=== PATIENT | female | born 1950 | race Caucasian/White ===

== ENCOUNTER → 2023-07-18 | Outpatient (REF) | payer OTHER, SELFPAY | LOC: DHSLP | PROVIDERS: ATTENDING PHYSICIAN Internal Medicine | DX: G47.33 Obstructive sleep apnea (adult) (pediatric) (principal) | CPT/HCPCS: 95800 ==

== ENCOUNTER → 2023-09-27 14:19 | Outpatient (REF) | payer OTHER, SELFPAY | LOC: RCS 14:19 | PROVIDERS: ATTENDING PHYSICIAN Internal Medicine Cardiovascular Disease; FAMILY PHYSICIAN Physician Assistant Medical | DX: R53.83 Other fatigue (principal); E78.5 Hyperlipidemia, unspecified | CPT/HCPCS: 93017 ==

== ENCOUNTER → 2023-10-19 10:58 | Outpatient (REF) | payer OTHER, SELFPAY | LOC: WDC 10:58 | PROVIDERS: ATTENDING PHYSICIAN Physician Assistant Medical | DX: Z12.31 Encounter for screening mammogram for malignant neoplasm of breast (principal) | CPT/HCPCS: 77063; 77067 ==

== ENCOUNTER → 2023-10-25 09:43 | Outpatient (REF) | payer OTHER, SELFPAY | LOC: WDC 09:43 | PROVIDERS: ATTENDING PHYSICIAN Physician Assistant Medical | DX: R92.8 Other abnormal and inconclusive findings on diagnostic imaging of breast (principal) | CPT/HCPCS: 76642 ==

== ENCOUNTER → 2023-10-31 07:12 | Outpatient (REF) | payer OTHER, SELFPAY ==
--- NOTE | 2023-10-31 14:25 | OID.BR.INTR ---
[facility] Breast Navigator - Initial
- -
Date of Contact: 10/31/23
Met with patient. Patient given written information on navigator services and support services available at [facility]. Will follow up as needed per protocol.
== END ==
LOC: WDC 07:12
PROVIDERS: ATTENDING PHYSICIAN Physician Assistant Medical
DX: N63.11 Unspecified lump in the right breast, upper outer quadrant (principal)
CPT/HCPCS: 88305; 19083; 77065; 88342; 88360; A4648

== ENCOUNTER → 2023-11-17 16:23 | Outpatient (REF) | payer OTHER, SELFPAY | LOC: MRI 3T 16:23 | PROVIDERS: ATTENDING PHYSICIAN Surgery; FAMILY PHYSICIAN Physician Assistant Medical | DX: C50.411 Malignant neoplasm of upper-outer quadrant of right female breast (principal); Z17.0 Estrogen receptor positive status [ER+] | CPT/HCPCS: 77049; A9575 ==

== ENCOUNTER → 2023-11-21 10:20 | Outpatient (REF) | payer OTHER, SELFPAY | LOC: WDC 10:20 | PROVIDERS: ATTENDING PHYSICIAN Surgery; FAMILY PHYSICIAN Physician Assistant Medical | DX: R92.8 Other abnormal and inconclusive findings on diagnostic imaging of breast (principal) | CPT/HCPCS: 76642 ==

== ENCOUNTER 2023-11-23 11:14 | Emergency (ER) | payer OTHER, SELFPAY ==
[2023-11-23 11:16] VITALS: BP 162/94
[2023-11-23 11:33] VITALS: BMI 27.7
--- NOTE | 2023-11-23 12:37 | ED.GENMED ---
History of Present Illness
General
Chief Complaint: Head Injury
Source: patient
Exam Limitations: none
Time Seen by Provider: 11/23/23 11:32
Nursing documentation reviewed up to this point in time: agreed with
History of Present Illness
History of Present Illness:
Patient is a 72-year-old female who got off of the couch this morning twisted her left ankle which caused her to fall and hit her head against a wood-burning stove in the corner of a wall. She does complain of a laceration to the right forehead.
She does have a headache denies loss of consciousness denies any nausea vomiting. She does not use blood thinners. She is unsure of her last tetanus. She does complain of pain to the left ankle. Spica splint send
Review of Systems
Review of Systems
Allergies reviewed?: Yes
All Other Systems: ROS reviewed and negative except as documented in HPI and ROS
Constitutional: Reports no symptoms
Respiratory: Reports no symptoms
Cardiac: Reports no symptoms
ABD/GI: Denies nausea or vomiting
Musculoskeletal: Reports other (left ankle pain )
Skin: Reports no symptoms
Neurological: Reports headache ( no LOC )
Phy Exam
General Physical Exam
General Presentation: no apparent distress
General age: appears stated age
General Skin: warm and dry
General Habitus: normal
General Mental: alert
General Hydration: appears well hydrated
ENT Exam
ENT Exam: EOMI
Eye Exam
Eye Exam: PERRL and EOMI
Eye Exam General: PERRL: bilateral and EOM intact: bilateral
Pupil Exam: Bilateral: round and reactive
Neurological Exam
Neurological Exam: alert, oriented x3, no motor deficits and no sensory deficits
Musculoskeletal Exam
Musculoskeletal Exam: other (Ecchymosis to left frontal scalp right frontal scalp with 2 cm partial-thickness laceration no bony cervical spine tenderness, left lateral ankle with mild swelling tender along the left malleolus patient)
Skin Exam
Skin Exam: normal color and warm/dry
Psychiatric Exam
Psychiatric Exam: normal mood/affect
Course
Orders/Labs/Results
Orders:
Orders
11/23/23 11:21
CT Head W/o Iv Contrast Urgent
Comment:
Reason For Exam: head strike
Ankle, left 3 view CR [CR Ankle - Left Min 3 Views ] Urgent
Comment:
Reason For Exam: injury
11/23/23 12:36
CT Cervical Spine W/o Iv Contr Urgent
Comment:
Reason For Exam: trauma
Tetanus/Diphth/Acelpertussis [Adacel] 0.5 ml IM .ONCE ONE
11/23/23 12:53
boot [Ortho Boot Left- Treatment] ONCE
Short or tall?: Tall
Vital Signs
Initial and Last Documented VS:
Initial Vital Signs
Temp Pulse Resp BP Pulse Ox
98 F 70 16 162/94 98
11/23/23 11:16 11/23/23 11:16 11/23/23 11:16 11/23/23 11:16 11/23/23 11:16
Last Documented Vital Signs
Temp Pulse Resp BP Pulse Ox
98 F 70 16 162/94 98
11/23/23 11:16 11/23/23 11:16 11/23/23 11:16 11/23/23 11:16 11/23/23 11:16
Procedures
Laceration Closure
Right Head:
Status of Wound: clean
Size of Wound in cm: 2
Description of Wound Edges: sharp
Revision/Debridement: routine- no revision
Type of Closure: Dermabond-skin glue
MDM/Problems Addressed
Differential Diagnosis Includes:
not limited to: Head injury, intracranial hemorrhage, laceration, ankle fracture sprain
MDM/Problems Addressed:
Patient is a 72-year-old female who got off of the sofa twisted her left ankle fell hitting her head on the wood-burning stove. She sustained a contusion to left forehead and a laceration which is partial-thickness repaired with glue to her right
forehead and fracture, acute nondisplaced transverse fracture lateral malleolus of the left ankle. She is in no acute distress looks well no blood thinners no loss of consciousness. Mild headache. ct head/c spine neg
With fracture being nondisplaced on lateral malleolus will DC with boot and walker with ortho follow up.
*Radiology
Radiology exam reviewed: radiology read reviewed
*Pulse Oximetry
Patient hypoxic: no
*Critical Care Note
Total Time (30-74mins, 75-104mins- exclusive of procedures): Not Applicable
ED Attending Note
-
Portions of this chart may have been created with voice recognition software.� Occasional wrong word or��sound alike� substitutions may have occurred due to the inherent limitations of voice recognition software.
Discharge Plan
Departure
Patient Disposition: Home (Routine Discharge)
Date of Disposition: 11/23/23
Time of Disposition: 13:47
Patient with high blood pressure during this ER visit?: Yes
Discharge Problem:
fibula fracture, Head injury, Laceration
Instructions: Laceration Repair With Glue (DC), Head Injury in Adults (DC), Ankle Fracture ED, BLOOD PRESSURE
Prescriptions:
No Action
estradiol [Yuvafem] 10 mcg Tablet
10 mcg VAGINAL .2X A WEEK
Advanced Multivitamin - Women
1 gum PO DAILY
lorazepam 0.5 mg Tablet
0.25 mg PO HS
ascorbic acid (vitamin C) [Vitamin C] 500 mg Tablet
500 mg PO DAILY
vitamin E 268 mg (400 unit) Capsule
268 mg PO DAILY
coenzyme Q10 [CoQ-10] 100 mg Capsule
100 mg PO DAILY
escitalopram oxalate 5 mg Tablet
5 mg PO DAILY
mirabegron [Myrbetriq] 50 mg Tablet Extended Release 24 Hr
50 mg PO DAILY
[place] Berg[place]ot 500 mg Capsule
500 mg PO DAILY
Ginkgo
1 tab PO DAILY
Vitamin D3
1 cap PO DAILY
calcium
1 tab PO DAILY
vitamin Q58-ntgye acid
1 tab PO DAILY
Referrals:
Justine Moore PA-C [Family Provider] -
Torsten Arndt MD [Active] -
Activity Restrictions/Additional Instructions:
as discussed you have a nondisplaced fracture of your fibula(ankle bone limit weightbearing is much as possible wear) boot and use walker for ambulation. Keep elevated is much as possible over the next 24 hours. Tylenol or ibuprofen as needed for
discomfort. Call orthopedics tomorrow for appointment next 2 days.
For laceration to forehead keep clean and dry after 24 hours may lightly wash with soap and water glue will flake off on its own within 5 to 7 days. Do not apply antibiotic ointment to the area as this will break the glue down.
return if any worsening of symptoms.
Interventions
Interventions:
*Risk Screen - Suicide Last Done: 11/23/23 11:16
*General Assessment Last Done: 11/23/23 11:16
*Neglect/Abuse Screening Last Done: 11/23/23 11:16
ED- Fall Risk Assessment Last Done: 11/23/23 11:33
*ED COVID-19 Vaccine History Last Done: 11/23/23 11:33
ED- Neurological Assessment Last Done: 11/23/23 11:33
ED-Skin Assessment Last Done: 11/23/23 11:33
Discharge Date and Time
Print Language: ICELANDIC
[2023-11-23] MEDS: ADACEL 0.5 ML IM (13:09)
== END 2023-11-23 14:13 | disposition home or self-care (01) ==
LOC: EMR 11:14
PROVIDERS: EMERGENCY PHYSICIAN Emergency Medicine; FAMILY PHYSICIAN Physician Assistant Medical
DX: S82.65XA Nondisplaced fracture of lateral malleolus of left fibula, initial encounter for closed fracture (principal); S01.81XA Laceration without foreign body of other part of head, initial encounter; S09.90XA Unspecified injury of head, initial encounter; X50.1XXA Overexertion from prolonged static or awkward postures, initial encounter; Z23 Encounter for immunization
CPT/HCPCS: 99285; 12011; 90471; 70450; 72125; 73610; 90715

== ENCOUNTER → 2023-11-24 07:30 | Outpatient (REF) | payer OTHER, SELFPAY ==
[2023-11-10 10:16] VITALS: BMI 23.0
[2023-11-10 11:39] LABS: Hematocrit 35.7 % (37.0-47.0); Hemoglobin 11.3 g/dL (12.0-16.0); Mean Corp Hgb Conc. 31.7 g/dL (33.0-37.0); Mean Corpuscular Hgb 26.9 pg (27.0-31.0); Mean Platelet Volume 8.6 fL (7.4-10.4); Platelet Count 348 10^3/uL (130-400); Red Cell Dist. Width 14.8 % (11.5-14.5); White Blood Cell Count 4.1 10^3/uL (4.8-10.8)
[2023-11-10 12:09] LABS: Prealbumin (Transthyretin) 22.8 mg/dl (17.6-36.0)
[2023-11-10 12:22] LABS: Vitamin D, 25-OH*** 51.8 ng/mL (30-80)
[2023-11-10 13:02] LABS: ALT (SGPT) 14 U/L (0-35); AST (SGOT) 23 U/L (14-36); Albumin 4.3 g/dl (3.5-5.0); Alkaline Phosphatase 73 U/L (38-126); Blood Urea Nitrogen 14 mg/dl (7-17); Calcium 9.4 mg/dl (8.4-10.2); Carbon Dioxide 26 mmol/L (22-30); Chloride 102 mmol/L (98-107); Estimated Creatinine Clearance 63 ml/min; Glucose 88 mg/dl (70-99); Potassium 4.7 mmol/L (3.5-5.1); Sodium 137 mmol/L (135-145); Total Bilirubin 0.3 mg/dl (0.2-1.3); Total Protein 7.1 g/dl (6.3-8.2); eGFR > 60.00
== END ==
LOC: REG 07:30
PROVIDERS: ATTENDING PHYSICIAN Surgery; FAMILY PHYSICIAN Physician Assistant Medical; OTHER PHYSICIAN Obstetrics & Gynecology Gynecology
DX: C50.411 Malignant neoplasm of upper-outer quadrant of right female breast (principal)
CPT/HCPCS: 36415; 80053; 82306; 84134; 85027; 93005

== ENCOUNTER → 2023-12-08 09:53 | Outpatient (REF) | payer OTHER, SELFPAY | LOC: PAVMRI 09:53 | PROVIDERS: ATTENDING PHYSICIAN Surgery; FAMILY PHYSICIAN Physician Assistant Medical | DX: R92.8 Other abnormal and inconclusive findings on diagnostic imaging of breast (principal) | CPT/HCPCS: 88305; 19085; A9585 ==

== ENCOUNTER → 2023-12-20 11:32 | Outpatient (REF) | payer OTHER, SELFPAY | LOC: WDC 11:32 | PROVIDERS: ATTENDING PHYSICIAN Surgery; FAMILY PHYSICIAN Physician Assistant Medical | DX: R92.8 Other abnormal and inconclusive findings on diagnostic imaging of breast (principal) | CPT/HCPCS: 19285; 76642; 77066; A4648 ==

== ENCOUNTER → 2023-12-21 11:32 | Outpatient (REF) | payer OTHER, SELFPAY | LOC: WDC 11:32 | PROVIDERS: ATTENDING PHYSICIAN Surgery | DX: C50.411 Malignant neoplasm of upper-outer quadrant of right female breast (principal) | CPT/HCPCS: 38792; 76942; A9541 ==

== ENCOUNTER 2023-12-22 06:10 | Day surgery (SDC) | payer OTHER, SELFPAY ==
[2023-12-22] VITALS (8 sets, daily range): BP systolic 119–164; BP diastolic 62–82; BMI 22.5
[2023-12-22] MEDS: TYLENOL 1000 MG PO (10:52)
[2023-12-22] MEDS: NORMOSOL-R 1000 IV (10:53)
[2023-12-22] MEDS: LOVENOX 40 MG SC (10:53)
--- NOTE | 2023-12-22 17:41 | W.IMMPOSTOP ---
Surgical Immed Post Op Note
-
Primary Surgeon: Isela
Assisting Surgeon: None
Pre-op Diagnosis: Right breast DCIS
Post-op Diagnosis: Same
Procedure Performed: Right localized lumpectomy
Anesthesia Type: TIVA
Specimen / Cultures: Left lumpectomy; right lumpectomy, margins, sentinel nodes
Estimated Blood Loss: 6cc
Complications: None
Operative Findings: Neg nodes clips and reflectors in specimens
--- NOTE | 2023-12-22 17:42 | W.IMMPOSTOP ---
Surgical Immed Post Op Note
-
Primary Surgeon:
Assisting Surgeon:
Pre-op Diagnosis:
Post-op Diagnosis:
Procedure Performed:
Anesthesia Type:
Specimen / Cultures:
Estimated Blood Loss:
Complications:
Operative Findings:
Mills Node Bx Breast Cancer
Mills Node Bx Breast Cancer
Operation performed with curative intent: Yes
Tracer(s) to ID Mills Nodes in Non-Neoadjuvant setting: N/A
Tracer(s) to ID Sentinal Nodes in the Neoadjuvant Setting: Radioactive Tracer
All nodes at end of dye-filled Lymphatic Channel removed: N/A
All Significantly Radioactive Nodes were removed: Yes
All Palpably Suspicious Nodes were Removed: Yes
Bx Proven Pos Nodes Marked Prior to Chemo ID'd & Removed: N/A
== END 2023-12-22 14:55 | disposition home or self-care (01) ==
LOC: SDS 06:10
PROVIDERS: ATTENDING PHYSICIAN Surgery
DX: C50.411 Malignant neoplasm of upper-outer quadrant of right female breast (principal); D05.82 Other specified type of carcinoma in situ of left breast; Z17.0 Estrogen receptor positive status [ER+]
CPT/HCPCS: 38525; 19301; 88305; 88307; 88332; 76098; 88331; 88341; 88342; 88360; A4648

== ENCOUNTER → 2024-02-08 09:01 | Outpatient (REF) | payer OTHER, SELFPAY | LOC: RAD 09:01 | PROVIDERS: ATTENDING PHYSICIAN Orthopaedic Surgery; FAMILY PHYSICIAN Physician Assistant Medical | DX: Z13.820 Encounter for screening for osteoporosis (principal) | CPT/HCPCS: 77080 ==

== ENCOUNTER → 2024-02-14 14:49 | Outpatient (REF) | payer OTHER, SELFPAY | LOC: WDC 14:49 | PROVIDERS: ATTENDING PHYSICIAN Surgery; FAMILY PHYSICIAN Physician Assistant Medical | DX: N64.89 Other specified disorders of breast (principal) | CPT/HCPCS: 76642 ==

== ENCOUNTER → 2024-03-08 07:57 | Outpatient (REF) | payer OTHER, SELFPAY | LOC: WOUND 07:57 | PROVIDERS: ATTENDING PHYSICIAN Surgery; FAMILY PHYSICIAN Physician Assistant Medical | DX: S21.002A Unspecified open wound of left breast, initial encounter (principal); T81.41XA Infection following a procedure, superficial incisional surgical site, initial encounter; C50.812 Malignant neoplasm of overlapping sites of left female breast; Z17.0 Estrogen receptor positive status [ER+]; C50.811 Malignant neoplasm of overlapping sites of right female breast; N18.2 Chronic kidney disease, stage 2 (mild); Y83.8 Other surgical procedures as the cause of abnormal reaction of the patient, or of later complication, without mention of misadventure at the time of the procedure; X58.XXXA Exposure to other specified factors, initial encounter | CPT/HCPCS: 99203 ==

== ENCOUNTER → 2024-03-15 09:41 | Outpatient (REF) | payer OTHER, SELFPAY | LOC: WOUND 09:41 | PROVIDERS: ATTENDING PHYSICIAN Surgery | DX: S21.002A Unspecified open wound of left breast, initial encounter (principal); T81.41XA Infection following a procedure, superficial incisional surgical site, initial encounter; C50.812 Malignant neoplasm of overlapping sites of left female breast; Z17.0 Estrogen receptor positive status [ER+]; C50.811 Malignant neoplasm of overlapping sites of right female breast; N18.2 Chronic kidney disease, stage 2 (mild); Y83.8 Other surgical procedures as the cause of abnormal reaction of the patient, or of later complication, without mention of misadventure at the time of the procedure | CPT/HCPCS: 99213 ==

== ENCOUNTER → 2024-03-22 09:40 | Outpatient (REF) | payer OTHER, SELFPAY | LOC: WOUND 09:40 | PROVIDERS: ATTENDING PHYSICIAN Surgery; FAMILY PHYSICIAN Physician Assistant Medical | DX: T81.41XA Infection following a procedure, superficial incisional surgical site, initial encounter (principal); S21.002A Unspecified open wound of left breast, initial encounter; N18.2 Chronic kidney disease, stage 2 (mild); Z17.0 Estrogen receptor positive status [ER+]; C50.811 Malignant neoplasm of overlapping sites of right female breast; Y83.8 Other surgical procedures as the cause of abnormal reaction of the patient, or of later complication, without mention of misadventure at the time of the procedure; X58.XXXA Exposure to other specified factors, initial encounter | CPT/HCPCS: 99213 ==

== ENCOUNTER → 2024-07-19 12:55 | Outpatient (REF) | payer OTHER, SELFPAY | LOC: RAD 12:55 | PROVIDERS: ATTENDING PHYSICIAN Surgery; FAMILY PHYSICIAN Physician Assistant Medical | DX: N39.41 Urge incontinence (principal) | CPT/HCPCS: 76770 ==

== ENCOUNTER → 2024-10-21 10:31 | Outpatient (REF) | payer OTHER, SELFPAY | LOC: WDC 10:31 | PROVIDERS: ATTENDING PHYSICIAN Surgery; FAMILY PHYSICIAN Physician Assistant Medical | DX: Z12.31 Encounter for screening mammogram for malignant neoplasm of breast (principal) | CPT/HCPCS: 77063; 77067 ==

== ENCOUNTER → 2024-11-29 12:37 | Outpatient (REF) | payer OTHER, SELFPAY | LOC: WDC 12:37 | PROVIDERS: ATTENDING PHYSICIAN Surgery; FAMILY PHYSICIAN Physician Assistant Medical | DX: R92.30 Dense breasts, unspecified (principal) | CPT/HCPCS: 76641 ==

== ENCOUNTER → 2024-12-05 11:39 | Outpatient (REF) | payer OTHER, SELFPAY | LOC: HWRAD 11:39 | PROVIDERS: ATTENDING PHYSICIAN Physician Assistant Medical | DX: Z13.6 Encounter for screening for cardiovascular disorders (principal) | CPT/HCPCS: 75571 ==